=== PATIENT | male | born 2000 | race Hispanic/Latino ===

== ENCOUNTER 2020-04-05 18:15 | Emergency (ER) | payer OTHER ==
[2020-04-05] MEDS ORDERED: NA CHLORIDE 0.9% 2,000 ML ONE (19:19)
--- NOTE | 2020-04-05 19:31 | RAD REPORT ---
EXAM DESCRIPTION: CT - Head Brain Wo Cont - 04/05/2020 7:20 pm CLINICAL HISTORY: Dizziness;Declining state Headache, drowsiness COMPARISON: No comparisons TECHNIQUE: All CT scans are performed using dose optimization technique as appropriate and may inclu de automated exposure control or mA/KV adjustment according to patient size. FINDINGS: No intracranial hemorrhage, hydrocephalus or extra-axial fluid collection.No areas of brai n edema or evidence of midline shift. The paranasal sinuses and mastoids are clear. The calvarium is intact. IMPRESSION: No acute intracranial abnormality.
[2020-04-05 19:33] LABS: Absolute Lymphocytes (CBC) 2.3 K/uL (0.7-4.9); Basophils % 0.5 % (0-1.3); Hematocrit 45.5 % (39.6-49.0); Lymphocytes % 15.9 % (15.3-44.8); MPV 9.2 fL (7.6-11.3); RBC Red Blood Cell Count 5.38 M/uL (4.33-5.43)
--- NOTE | 2020-04-05 19:33 | RAD REPORT ---
EXAM DESCRIPTION: RAD - Chest Single View - 04/05/2020 7:28 pm CLINICAL HISTORY: COUGH Chest pain. COMPARISON: No comparisons FINDINGS: Portable technique limits examination quality. The lungs are grossly clear. The heart is normal in size. No displaced fractures. IMPRESSION: No acute intrathoracic process suspected.
[2020-04-05 19:36] LABS: Protime INR 1.16
[2020-04-05 19:49] LABS: ALT/SGPT 43 U/L (12-78); AST/SGOT 31 U/L (15-37); Alkaline Phosphatase 127 U/L (45-117); BUN Blood Urea Nitrogen 13 mg/dL (7-18); Bicarbonate 23 mmol/L (21-32); Bilirubin Direct 0.3 mg/dL (0-0.2); Bilirubin Total 1.7 mg/dL (0.2-1.0); Creatine Phosphokinase 738 U/L (39-308); Glucose Level 85 mg/dL (74-106); Magnesium 1.9 mg/dL (1.8-2.4); Potassium 3.4 mmol/L (3.5-5.1); Protein, Total 8.8 g/dL (6.4-8.2); Sodium Level 136 mmol/L (136-145); Troponin (Emerg Dept Use Only) 0.02 ng/mL (0.0-0.045)
[2020-04-05 20:00] LABS: Urine Blood NEGATIVE (NEG); Urine Glucose NEGATIVE (NEG); Urine Protein NEGATIVE (NEG)
[2020-04-05 20:01] LABS: Barbiturates NEGATIVE (NEGATIVE); Benzodiazepines NEGATIVE (NEGATIVE); Cocaine NEGATIVE (NEGATIVE); METHAMPHETAM NEGATIVE (NEGATIVE); Methadone NEGATIVE (NEGATIVE); Opiates NEGATIVE (NEGATIVE); Phencyclidine NEGATIVE (NEGATIVE); THC Cannibis NEGATIVE (NEGATIVE)
--- NOTE | 2020-04-05 21:54 | EDPHYS ---
Physician Documentation [facility] Name: Oscar Abbott Age: 19 yrs Sex: Male : 2000 Arrival Date: 04/05/2020 Time: 18:17 Bed 4 Private MD: ED Physician Haider Frankel HPI: 04/05 19:02 This 19 yrs old Male presents to ER via Wheelchair with complaints of S/S of jose Possible Stroke. 19:02 The patient's problem is reported as weakness, in the right upper extremity, in the jose right lower extremity, in the left upper extremity, in the left lower extremity, that is generalized. Onset: The symptoms/episode began/occurred just prior to arrival. Duration: The episode is continuous. Context: working in the sun all day, possibly overheated. The symptoms are alleviated by nothing. The symptoms are aggravated by nothing. Associated signs and symptoms: The patient has no apparent associated signs or symptoms. Severity of symptoms: At their worst the symptoms were moderate in the emergency department the symptoms are unchanged. The patient has not experienced similar symptoms in the past. Historical: - Allergies: 18:22 No Known Allergies; ll1 - PMHx: 18:22 None; ll1 - PSHx: 18:22 None; ll1 - Social history:: Smoking status: Patient denies any tobacco usage or history of. Patient/guardian denies using alcohol, street drugs, tobacco products. - Family history:: not pertinent. ROS: 19:02 Constitutional: Negative for fever, chills, and weight loss, Eyes: Negative for injury, jose pain, redness, and discharge, ENT: Negative for injury, pain, and discharge, Neck: Negative for injury, pain, and swelling, Cardiovascular: Negative for chest pain, palpitations, and edema, Respiratory: Negative for shortness of breath, cough, wheezing, and pleuritic chest pain, Abdomen/GI: Negative for abdominal pain, nausea, vomiting, diarrhea, and constipation, Back: Negative for injury and pain, : Negative for injury, bleeding, discharge, and swelling, MS/Extremity: Negative for injury and deformity, Skin: Negative for injury, rash, and discoloration, Psych: Negative for depression, anxiety, suicide ideation, homicidal ideation, and hallucinations, Allergy/Immunology: Negative for hives, rash, and allergies, Endocrine: Negative for neck swelling, polydipsia, polyuria, polyphagia, and marked weight changes. 19:02 Neuro: Positive for altered mental status, weakness. Exam: 19:02 Constitutional: This is a well developed, well nourished patient who is awake, alert, jose and in no acute distress. Head/Face: Normocephalic, atraumatic. Eyes: Pupils equal round and reactive to light, extra-ocular motions intact. Lids and lashes normal. Conjunctiva and sclera are non-icteric and not injected. Cornea within normal limits. Periorbital areas with no swelling, redness, or edema. ENT: Nares patent. No nasal discharge, no septal abnormalities noted. Tympanic membranes are normal and external auditory canals are clear. Oropharynx with no redness, swelling, or masses, exudates, or evidence of obstruction, uvula midline. Mucous membranes moist. Neck: Trachea midline, no thyromegaly or masses palpated, and no cervical lymphadenopathy. Supple, full range of motion without nuchal rigidity, or vertebral point tenderness. No Meningismus. Chest/axilla: Normal chest wall appearance and motion. Nontender with no deformity. No lesions are appreciated. Respiratory: Lungs have equal breath sounds bilaterally, clear to auscultation and percussion. No rales, rhonchi or wheezes noted. No increased work of breathing, no retractions or nasal flaring. Abdomen/GI: Soft, non-tender, with normal bowel sounds. No distension or tympany. No guarding or rebound. No evidence of tenderness throughout. Back: No spinal tenderness. No costovertebral tenderness. Full range of motion. Male : Normal genitalia with no discharge or lesions. Skin: Warm, dry with normal turgor. Normal color with no rashes, no lesions, and no evidence of cellulitis. MS/ Extremity: Pulses equal, no cyanosis. Neurovascular intact. Full, normal range of motion. Psych: Awake, alert, with orientation to person, place and time. Behavior, mood, and affect are within normal limits. 19:02 Cardiovascular: Rate: tachycardic, Rhythm: regular, Pulses: Pulses are 4+ in bilateral radial, brachial, femoral, popliteal, posterior tibial and and dorsalis pedis arteries.. Heart sounds: normal, Edema: is not appreciated, JVD: is not appreciated. 19:04 Radiologist reports: see reports [facility] 19:07 ECG was reviewed by the Attending Physician. [facility] 19:53 Radiologist reports: negative for acute fingings pm1 Vital Signs: 18:19 BP 135 / 83; Pulse 103; Resp 18; Temp 98.0; Pulse Ox 98% ; Pain 0/10; ll1 20:12 BP 125 / 85; Pulse 92; Resp 16; Temp 98.1; Pulse Ox 99% on R/A; rr5 21:24 BP 112 / 55; Pulse 80; Resp 15; Pulse Ox 99% on R/A; rr5 22:04 BP 102 / 65; Pulse 75; Resp 16; Temp 99; Pulse Ox 99% ; rr5 MDM: 18:23 Patient medically screened. [facility] 19:05 Data reviewed: vital signs, nurses notes, lab test result(s), EKG, radiologic studies, [facility] CT scan, plain films. 19:05 Differential diagnosis: CVA, TIA, metabolic disorder, drug effects. Data interpreted: [facility] panel cutter: rate is 103 beats/min, rhythm is normal sinus rhythm, Pulse oximetry: on room air is 98 %. Test interpretation: by ED physician or midlevel provider: ECG, plain radiologic studies. Counseling: I had a detailed discussion with the patient and/or guardian regarding: the historical points, exam findings, and any diagnostic results supporting the discharge/admit diagnosis, the presence of at least one elevated blood pressure reading (>120/80) during this emergency department visit, lab results, radiology results. ED course: labs and ct pending, sameer guerrero to dispo. 04/05 19:01 Order name: Basic Metabolic Panel [facility] 04/05 19:01 Order name: CBC with Diff 04/05 19:01 Order name: LFT's [facility] 04/05 19:01 Order name: Magnesium [facility] 04/05 19:01 Order name: Troponin (emerg Dept Use Only) [facility] 04/05 19:01 Order name: Acetaminophen; Complete Time: 20:26 [facility] 04/05 19:01 Order name: ETOH Level; Complete Time: 20:26 [facility] 04/05 19:01 Order name: PT-INR; Complete Time: 19:42 [facility] 04/05 19:01 Order name: Ptt, Activated; Complete Time: 19:42 [facility] 04/05 19:01 Order name: Salicylate; Complete Time: 20:26 [facility] 04/05 19:01 Order name: Urine Drug Screen; Complete Time: 20:26 [facility] 04/05 19:01 Order name: CK; Complete Time: 20:26 [facility] 04/05 19:01 Order name: Ckmb; Complete Time: 20:26 [facility] 04/05 19:02 Order name: Basic Metabolic Panel; Complete Time: 20:26 [facility] 04/05 19:01 Order name: XRAY Chest (1 view); Complete Time: 19:42 [facility] 04/05 19:01 Order name: EKG; Complete Time: 19:03 [facility] 04/05 19:01 Order name: Cardiac monitoring; Complete Time: 19:50 [facility] 04/05 19:01 Order name: EKG - Nurse/Tech; Complete Time: 19:47 [facility] 04/05 19:01 Order name: IV Saline Lock; Complete Time: 19:48 [facility] 04/05 19:01 Order name: Labs collected and sent; Complete Time: 19:48 [facility] 04/05 19:01 Order name: O2 Per Protocol; Complete Time: 19:48 [facility] 04/05 19:01 Order name: O2 Sat Monitoring; Complete Time: 19:48 [facility] 04/05 19:01 Order name: CT Head Brain wo Cont; Complete Time: 19:42 [facility] 04/05 19:03 Order name: CBC with Automated Diff; Complete Time: 19:42 [facility] 04/05 19:03 Order name: Liver (Hepatic) Function; Complete Time: 20:26 [facility] 04/05 19:03 Order name: Magnesium; Complete Time: 20:26 [facility] 04/05 19:03 Order name: Troponin (Emerg Dept Use Only); Complete Time: 20:26 [facility] 04/05 19:49 Order name: Urine Dipstick--Ancillary (enter results); Complete Time: 20:26 [facility] 04/05 19:01 Order name: Urine Dipstick-Ancillary (obtain specimen); Complete Time: 19:47 [facility] 04/05 20:52 Order name: PO challenge; Complete Time: 20:52 rr5 EC:07 Rate is 93 beats/min. Rhythm is regular. QRS [place] is Normal. CO interval is normal. QRS jose interval is normal. QT interval is normal. No Q waves. T waves are Normal. No ST changes noted. Clinical impression: Normal ECG and No evidence of ischemia. Interpreted by me. Reviewed by me. Administered Medications: 19:47 Drug: NS 0.9% 1000 ml Route: IV; Rate: 1 bolus; Site: right antecubital; rr5 21:21 Follow up: Response: No adverse reaction; IV Status: Completed infusion; IV Intake: rr5 1000ml 19:47 Drug: NS 0.9% 1000 ml Route: IV; Rate: 1 bolus; Site: right antecubital; rr5 21:21 Follow up: Response: No adverse reaction; IV Status: Completed infusion; IV Intake: rr5 1000ml Disposition: 04/06 05:46 Co-signature as Attending Physician, Haider Frankel MD I agree with the assessment and jose plan of care. Disposition: 04/05/20 21:53 Discharged to Home. Impression: Exposure to excessive natural heat, Dehydration. - Condition is Stable. - Discharge Instructions: Dehydration, Adult, Heat Exhaustion Information, Rehydration, Adult. - Medication Reconciliation Form, Thank You Letter, Antibiotic Education, Prescription Opioid Use, Work release form form. - Follow up: Emergency Department; When: As needed; Reason: Worsening of condition. Follow up: Private Physician; When: 2 - 3 days; Reason: Recheck today's complaints, Continuance of care, Re-evaluation by your physician. - Problem is new. - Symptoms have improved. Signatures: Dispatcher [employer] EDNH Haider Frankel MD MD cha Marinas, Patrick, DOCUMENT SCANNER DOCUMENT SCANNER pm1 Thierry Guadalupe RN RN rr5 Demetrice Law RN RN ll1 Corrections: (The following items were deleted from the chart) 04/05 22:08 21:53 04/05/2020 21:53 Discharged to Home. Impression: Exposure to excessive natural rr5 heat; Dehydration. Condition is Stable. Forms are Medication Reconciliation Form, Thank You Letter, Antibiotic Education, Prescription Opioid Use. Follow up: Emergency Department; When: As needed; Reason: Worsening of condition. Follow up: Private Physician; When: 2 - 3 days; Reason: Recheck today's complaints, Continuance of care, Re-evaluation by your physician. Problem is new. Symptoms have improved. pm1
--- NOTE | 2020-04-05 21:54 | ER ---
Nurse's Notes [facility] Name: Oscar Abbott Age: 19 yrs Sex: Male : 2000 Arrival Date: 04/05/2020 Time: 18:17 Bed 4 Private MD: Diagnosis: Exposure to excessive natural heat;Dehydration Presentation: 04/05 18:19 Chief complaint: Patient states: Driving home from work and suddenly couldn't move body ll1 well. Gait unsteady per dad. Unable to get words out well. Coronavirus screen: Proceed with normal triage. Patient denies a cough. Patient denies shortness of breath or difficulty breathing. Patient denies measured and/or subjective temperature greater than 100.4F prior to today's visit. Patient denies travel on a cruise ship or to a country the [facility] currently lists as an affected area. Patient denies contact with known and/or suspected case of COVID-19. Ebola Screen: Patient denies travel to an Ebola-affected area in the 21 days before illness onset. No acute neurological deficit is noted. Initial Sepsis Screen: Does the patient meet any 2 criteria? HR > 90 bpm. No. Patient's initial sepsis screen is negative. Risk Assessment: Do you want to hurt yourself or someone else? Patient reports no desire to harm self or others. Onset of symptoms was April 05, 2020. 18:19 Method Of Arrival: Wheelchair ll1 18:19 Acuity: SHABBIR 3 ll1 Historical: - Allergies: 18:22 No Known Allergies; ll1 - PMHx: 18:22 None; ll1 - PSHx: 18:22 None; ll1 - Social history:: Smoking status: Patient denies any tobacco usage or history of. Patient/guardian denies using alcohol, street drugs, tobacco products. - Family history:: not pertinent. Screenin:12 Abuse screen: Denies threats or abuse. Denies injuries from another. Nutritional rr5 screening: No deficits noted. Tuberculosis screening: No symptoms or risk factors identified. Fall Risk IV access (20 points). Total Franklin Fall Scale indicates No Risk (0-24 pts). Assessment: 19:20 General: Appears in no apparent distress. comfortable, Behavior is calm, cooperative, rr5 appropriate for age. 19:20 Pain: Denies pain. Neuro: Level of Consciousness is awake, alert, obeys commands, rr5 Oriented to person, place, time, situation. Cardiovascular: Capillary refill < 3 seconds Patient's skin is warm and dry. Respiratory: Airway is patent Respiratory effort is even, unlabored, Respiratory pattern is regular, symmetrical. GI: No signs and/or symptoms were reported involving the gastrointestinal system. : No signs and/or symptoms were reported regarding the genitourinary system. EENT: No signs and/or symptoms were reported regarding the EENT system. Derm: Skin is intact, is healthy with good turgor, Skin temperature is warm. Musculoskeletal: Circulation, motion, and sensation intact. Capillary refill < 3 seconds. 20:10 Reassessment: Patient appears in no apparent distress at this time. Patient is alert, rr5 oriented x 3, equal unlabored respirations, skin warm/dry/pink. awaiting for results. 21:24 Reassessment: Patient appears in no apparent distress at this time. Patient is alert, rr5 oriented x 3, equal unlabored respirations, skin warm/dry/pink. PO challenge done no nausea or vomiting reported. 22:07 Reassessment: Patient appears in no apparent distress at this time. Patient is alert, rr5 oriented x 3, equal unlabored respirations, skin warm/dry/pink. discharge instruction given and explained without complaints made. Patient states feeling better. Patient states symptoms have improved. Vital Signs: 18:19 BP 135 / 83; Pulse 103; Resp 18; Temp 98.0; Pulse Ox 98% ; Pain 0/10; ll1 20:12 BP 125 / 85; Pulse 92; Resp 16; Temp 98.1; Pulse Ox 99% on R/A; rr5 21:24 BP 112 / 55; Pulse 80; Resp 15; Pulse Ox 99% on R/A; rr5 22:04 BP 102 / 65; Pulse 75; Resp 16; Temp 99; Pulse Ox 99% ; rr5 ED Course: 18:17 Patient arrived in ED. fj1 18:21 Triage completed. ll1 18:22 Arm band placed on. ll1 18:23 Haider Frankel MD is Attending Physician. jose 19:07 [facility] pm1 19:07 Thierry Guadalupe RN is Primary Nurse. rr5 19:20 Patient has correct armband on for positive identification. Bed in low position. Call rr5 light in reach. senior scheduler on. Pulse ox on. NIBP on. 19:21 CT Head Brain wo Cont In Process Unspecified. EDMS 19:23 Inserted saline lock: 20 gauge in left antecubital area, using aseptic technique. Blood oe collected. 19:28 XRAY Chest (1 view) In Process Unspecified. EDMS 19:40 Urine collected: clean catch specimen, clear. rr5 22:07 No provider procedures requiring assistance completed. IV discontinued, intact, rr5 bleeding controlled, No redness/swelling at site. Pressure dressing applied. Administered Medications: 19:47 Drug: NS 0.9% 1000 ml Route: IV; Rate: 1 bolus; Site: right antecubital; rr5 21:21 Follow up: Response: No adverse reaction; IV Status: Completed infusion; IV Intake: rr5 1000ml 19:47 Drug: NS 0.9% 1000 ml Route: IV; Rate: 1 bolus; Site: right antecubital; rr5 21:21 Follow up: Response: No adverse reaction; IV Status: Completed infusion; IV Intake: rr5 1000ml Intake: 21:21 IV: 1000ml; Total: 1000ml. rr5 21:21 IV: 1000ml; Total: 2000ml. rr5 Output: 19:40 Urine: 900ml (Voided); Total: 900ml. rr5 Outcome: 21:53 Discharge ordered by . pm1 22:07 Discharged to home ambulatory, with family. rr5 22:07 Condition: stable 22:07 Discharge instructions given to patient, Instructed on discharge instructions, follow up and referral plans. Demonstrated understanding of instructions, follow-up care. 22:08 Patient left the ED. rr5 Signatures: Dispatcher [employer] EDMS Haider Frankel MD MD cha Marinas, Patrick, MICROBIOLOGY LAB ASSISTANT MICROBIOLOGY LAB ASSISTANT pm1 Lorenzo Harris Raymond, RN RN rr5 Oren Nation fj1 Demetrice Law RN RN ll1
[2020-04-05 22:21] VITALS: O2SAT 99
[2020-04-05 22:24] VITALS: BP 102/65; TEMP 99
--- NOTE | 2020-04-07 07:49 | EKG ---
Test Date: 2020-04-05 Test Time: 18:32:35 Civil Designer: MASON MEASUREMENT RESULTS: Intervals: Rate: 93 OH: 152 QRSD: 90 QT: 352 QTc: 437 [place]: P: 40 OH: 152 QRS: 57 T: 28 INTERPRETIVE STATEMENTS: Normal sinus rhythm Normal ECG No previous ECG available for comparison Electronically Signed On 04-07-20 07:44:59 CDT by Reagan Monte
== END 2020-04-05 22:08 | disposition home or self-care (01) ==
LOC: ER 18:15
DX: E86.0 Dehydration (principal); X32.XXXA Exposure to sunlight, initial encounter; Y93.89 Activity, other specified; Y92.9 Unspecified place or not applicable; Y99.0 Civilian activity done for income or pay
CPT/HCPCS: 96361; 93005; 85025; 80048; 36415; 80320; 83735; 82550; 80329 ×2; 85610; 80076; 80307 ×8; 85730; 81003; 84484; 82553; 70450; 71045; 96360; 99284; J7030